=== PATIENT | female | born 1960 | race Caucasian/White ===

== ENCOUNTER 2022-08-25 10:52 | Emergency (ER) | payer BC ==
[~2022-08-25] VITALS: Ht 170.2 cm; Wt 68.6 kg
[~2022-08-25 10:52] MED LIST: CYAN500T71 PO; FLUO20CA39 PO; METO-395 PO; RAMI5CAP65 PO
[2022-08-25] MEDS ORDERED: CEPH-585 PO (13:27)
[2022-08-25 13:29] VITALS: BP 126/84
[2022-08-25 13:35] LABS: CLARITY,URINE SLIGHTLY CLOUDY (Clear); COLOR,URINE YELLOW (Yellow); GLUCOSE, URINE NEGATIVE (Neg); KETONES,URINE 15 mg/dl (Neg); LEUKOCYTE ESTERASE ,URINE MODERATE (Neg); NITRITES, URINE NEGATIVE (Neg); OCCULT BLOOD,URINE TRACE-INTACT (Neg); PH,URINE 5.5 (4.8-8.0); PROTEIN,URINE TRACE mg/dl (Neg)
[2022-08-25 13:42] LABS: UA COLLECTION TYPE CLN CATCH MIDSTREAM
[2022-08-25 13:43] LABS: WBC,URINE TNTC /HPF (0-4)
[2022-08-25 13:44] LABS: BACTERIA,URINE 1+ /HPF (Neg); MUCUS STRANDS FEW /LPF (Neg); RBC,URINE 0-2 /HPF (0-2); SQUAMOUS EPITHELIAL CELL,UR MODERATE /LPF (FEW)
[2022-08-25 13:45] LABS: WBC CLUMPS,URINE FEW /HPF (NEGATIVE)
== END 2022-08-25 14:20 | disposition home or self-care (01) ==
LOC: ER 10:53
DX: N39.0 Urinary tract infection, site not specified (principal); K46.9 Unspecified abdominal hernia without obstruction or gangrene; R13.10 Dysphagia, unspecified; G89.29 Other chronic pain; R06.02 Shortness of breath; Z88.0 Allergy status to penicillin; Z79.899 Other long term (current) drug therapy
CPT/HCPCS: 71045; 81001; 87088; 99284

== ENCOUNTER 2022-12-12 11:04 | Emergency (ER) | payer BC ==
[~2022-12-12] VITALS: Ht 172.7 cm; Wt 70.0 kg
[~2022-12-12 11:04] MED LIST changes: +CEPH-585 PO
[2022-12-12 11:26] LABS: BASOPHILS # (AUTO) 0.1 X10'3 (0-0.2); BASOPHILS % (AUTO) 0.6 % (0-1); EOSINOPHILS % (AUTO) 0.1 % (0-6); HEMATOCRIT 36.9 % (35.0-45.0); HEMOGLOBIN 12.3 g/dl (12.0-16.0); LYMPHOCYTES # (AUTO) 2.6 X10'3 (1.1-4.8); LYMPHOCYTES % (AUTO) 10.6 % (21-51); MEAN CORPUSCULAR HEMOGLOBIN 32.3 PG (27.0-31.0); MEAN CORPUSCULAR HGB CONC 33.4 g/dL (33.0-36.5); MEAN CORPUSCULAR VOLUME 96.6 FL (78-98); MEAN PLATELET VOLUME 8.5 FL (7.4-10.4); MONOCYTES % (AUTO) 4.2 % (2-12); NEUTROPHILS # (AUTO) 20.6 X10'3 (1.8-7.7); NEUTROPHILS % (AUTO) 84.5 % (42-75); PLATELET COUNT 865 X10'3 (140-440); RED BLOOD COUNT 3.82 X10'6 (4.20-5.60); RED CELL DISTRIBUTION WIDTH 13.7 % (11.5-14.5); WHITE BLOOD COUNT 24.4 X10'3 (4.5-11.0)
[2022-12-12 11:43] LABS: ALANINE AMINOTRANSFERASE 23 U/L (12-78); ALBUMIN 1.9 G/DL (3.4-5.0); ALBUMIN/GLOBULIN RATIO 0.3 (1.1-1.5); ALKALINE PHOSPHATASE 161 IU/L (46-116); ANION GAP 16 (8-16); ASPARTATE AMINO TRANSFERASE 30 U/L (10-37); BILIRUBIN,TOTAL 0.5 MG/DL (0.1-1.0); BLOOD UREA NITROGEN 6 MG/DL (7-18); BUN/CREATININE RATIO 7.4 (10.0-20.0); CALCIUM 9.4 MG/DL (8.5-10.1); CHLORIDE 92 MMOL/L (99-107); CREATININE 0.81 MG/DL (0.40-0.90); GLUCOSE 112 MG/DL (70-104); POTASSIUM 3.5 MMOL/L (3.5-5.1); SODIUM 131 MMOL/L (135-145); TOTAL PROTEIN 7.6 G/DL (6.4-8.2); eGFR 71 ML/MIN
[2022-12-12 11:50] LABS: PLATELET ESTIMATE INCREASED; TOTAL CELLS COUNTED 100
[2022-12-12 11:52] LABS: LARGE PLATELETS FEW; TOXIC GRANULATION 1+; TOXIC VACUOLATION FEW
[2022-12-12] MEDS ORDERED: pantoprazole 40mg IV 80 MG in normal saline 100ml IV soln 100 ML IV ONE (13:10)
[2022-12-12] MEDS ORDERED: normal saline 1000ml 1,000 ML IV ONE ×2 (13:10→14:10)
[2022-12-12] MEDS ORDERED: ondansetron/PF 4mg/2ml inj IV ONE ×2 (13:10→23:35)
[2022-12-12] MEDS ORDERED: morphine 4 MG/ML inj SYRINge IV ONE ×3 (13:10→23:35)
[2022-12-12] MEDS ORDERED: famotidine/PF 10 mg/ml inj IV ONE (13:15)
[2022-12-12] MEDS ORDERED: CefTRIAXone/D5W-Rocephin 1gm 50 ML IV ONE (14:10)
[2022-12-12 14:18] LABS: LIPASE 141 U/L (73-393)
[2022-12-12] MEDS: diatr meglu/diatrizoate 30ml oral sol.-(3 dose) bottle PO SCH ×2 (17:27→18:21)
[2022-12-12] MEDS ORDERED: metoclopramide 5 mg/ml inj IV ONE (17:30)
--- NOTE | 2022-12-12 23:16 | NUR ---
[facility] WAS CALLED AND SPOKE WITH DR. CHUNG. PATIENT WAS DECLINED FOR THE TIME BEING. TOLD TO CALL BACK IN THE MORNING IF TRANSFER WAS NOT SET UP WITH ANOTHER FACILITY.
--- NOTE | 2022-12-12 23:51 | NUR ---
[facility] CALLED FOR TRANSFER. WAS NOTIFIED THEY ARE AT CAPACITY AND TO CALL BACK AT 0100.
[2022-12-13] MEDS ORDERED: morphine 4 MG/ML inj SYRINge IV ONE ×2 (06:45→10:38)
[2022-12-13] MEDS ORDERED: ondansetron/PF 4mg/2ml inj IV ONE ×2 (06:45→10:40)
--- NOTE | 2022-12-13 10:54 | NUR ---
Pt was found on her knees grabbing the grab bars in the RR. Pt AMB to the RR IND. After pt voided she dropped something on the ground, when she leaned foward to pick it up she fell off of the toilet landing on her knees. ROM WNL. No c/o pain r/t fall. Pt states she did not hit her head. No shortening of limbs. Pt was assisted back on to her feet then into the W/C. Pt was then assisted back into bed. VSS, Afebrile. RR even and unlabored. has been notified.
[2022-12-13 10:56] LABS: BASOPHILS # (AUTO) 0.1 X10'3 (0-0.2); BASOPHILS % (AUTO) 0.4 % (0-1); EOSINOPHILS % (AUTO) 0.1 % (0-6); HEMATOCRIT 31.2 % (35.0-45.0); HEMOGLOBIN 10.3 g/dl (12.0-16.0); LYMPHOCYTES # (AUTO) 1.1 X10'3 (1.1-4.8); LYMPHOCYTES % (AUTO) 6.7 % (21-51); MEAN CORPUSCULAR HEMOGLOBIN 31.8 PG (27.0-31.0); MEAN CORPUSCULAR VOLUME 96.2 FL (78-98); MEAN PLATELET VOLUME 8.2 FL (7.4-10.4); MONOCYTES # (AUTO) 0.8 X10'3 (0-0.9); MONOCYTES % (AUTO) 4.8 % (2-12); NEUTROPHILS # (AUTO) 15.1 X10'3 (1.8-7.7); PLATELET COUNT 540 X10'3 (140-440); RED BLOOD COUNT 3.25 X10'6 (4.20-5.60); RED CELL DISTRIBUTION WIDTH 13.8 % (11.5-14.5); WHITE BLOOD COUNT 17.2 X10'3 (4.5-11.0)
[2022-12-13] MEDS ORDERED: LORazepam 2 mg/ml vial IV STA (11:01)
[2022-12-13 11:06] LABS: ALANINE AMINOTRANSFERASE 14 U/L (12-78); ALBUMIN 1.5 G/DL (3.4-5.0); ALBUMIN/GLOBULIN RATIO 0.3 (1.1-1.5); ALKALINE PHOSPHATASE 111 IU/L (46-116); ANION GAP 10 (8-16); ASPARTATE AMINO TRANSFERASE 17 U/L (10-37); BILIRUBIN,TOTAL 0.2 MG/DL (0.1-1.0); BLOOD UREA NITROGEN 5 MG/DL (7-18); BUN/CREATININE RATIO 7.9 (10.0-20.0); CALCIUM 8.5 MG/DL (8.5-10.1); CHLORIDE 101 MMOL/L (99-107); CREATININE 0.63 MG/DL (0.40-0.90); GLUCOSE 99 MG/DL (70-104); POTASSIUM 3.1 MMOL/L (3.5-5.1); SODIUM 136 MMOL/L (135-145); TOTAL CARBON DIOXIDE 24.9 MMOL/L (24-32); TOTAL PROTEIN 5.9 G/DL (6.4-8.2); eGFR > 90 ML/MIN
--- NOTE | 2022-12-13 11:47 | NUR ---
[facility] denied transfer, said to try at [facility] 12/13
--- NOTE | 2022-12-13 14:42 | NUR ---
[facility] ACCEPTED, [facility] IS SETTING UP BLS TRANSPORT
--- NOTE | 2022-12-13 14:48 | NUR ---
[facility] has accepted transfer. Transport is being set up, then will call for report.
[2022-12-13 15:33] VITALS: BP 120/79
== END 2022-12-13 15:40 ==
LOC: ER 11:05
DX: R10.84 Generalized abdominal pain (principal); R11.0 Nausea; R03.0 Elevated blood-pressure reading, without diagnosis of hypertension; Z88.0 Allergy status to penicillin; Z88.1 Allergy status to other antibiotic agents; Z79.2 Long term (current) use of antibiotics; Z79.899 Other long term (current) drug therapy; Z98.84 Bariatric surgery status; Z72.89 Other problems related to lifestyle; Z87.19 Personal history of other diseases of the digestive system; Z90.710 Acquired absence of both cervix and uterus
CPT/HCPCS: 36415; 74176; 76700; 80053; 83605; 83690; 83880; 84145; 84484; 85007; 85025; 87040; 96361; 96365; 96367; 96375; 96376; 99285; C9113; J0696; J2060; J2270; J2405; J2765; J3490; J7030; Q9963; 93005